=== PATIENT | male | born 1950 ===

== ENCOUNTER 2016-09-29 11:19 | Emergency (ER) | payer BC ==
--- NOTE | 2016-09-29 14:54 | UC ---
Michele Graham Billy, scribed for Maisha Siegel DO on 09/29/16 at 1308 . Respiratory Complaint HPI - HPI Summary HPI Summary: Patient is a 65 year-old male coming to [facility] for evaluation of 1.5 weeks of sinus congestion, nasal drainage, and productive cough. Patient states that his symptomsseemed to have improved today, but he has had other days wherein he has felt better. He is concerned because he plans to visit his 87yo mother on and is afraid of making her sick. Patient has been using a Neti pot for his symptoms several times a day. He denies any sore throat or earache. Denies chest pain or shortness of breath. His symptoms do not bother him at night when he is asleep. - History of Current Complaint Chief Complaint: UCRespiratory Stated Complaint: COUGHING, CONGEST Time Seen by Provider: 09/29/16 12:57 Hx Obtained From: Patient Onset/Duration: Gradual Onset, Lasting Days, Still Present Timing: Constant Severity Initially: Moderate Severity Currently: Moderate Character: Sputum Description: - unknown - he swallows it Aggravating Factors: Nothing Alleviating Factors: Nothing - neti Associated Signs And Symptoms: Positive: URI, Nasal Congestion, Sinus Discomfort. Negative: Dyspnea, Fever - Allergies/Home Medications Allergies/Adverse Reactions: Allergies Allergy/AdvReac Type Severity Reaction Status Date / Time No Known Allergies Allergy Verified 09/29/16 12:26 Home Medications: Home Medications Cholecalciferol [Vitamin D] 09/29/16 [History] Glucosamine Hydrochloride [Glucosamine] 500 mg PO 09/29/16 [History] Turmeric (Curcuma Longa) [Turmeric] 09/29/16 [History] PMH/Surg Hx/FS Hx/Imm Hx Previously Healthy: Yes Cardiovascular History Of: Denies: Cardiac Disorders - Surgical History Surgical History: Yes Surgery Procedure, Year, and Place: tonsillectomy as a child - Family History Known Family History: Negative: Cardiac Disease, Hypertension, Diabetes - Social History Lives: With Family Alcohol Use: Daily Substance Use Type: None Smoking Status (MU): Never Smoked Tobacco Review of Systems Constitutional: Negative Skin: Negative Eyes: Negative ENT: Nasal Discharge, Other - sinus congestion Respiratory: Cough Cardiovascular: Negative Gastrointestinal: Negative Genitourinary: Negative Motor: Negative Neurovascular: Negative Musculoskeletal: Negative Neurological: Negative Psychological: Negative All Other Systems Reviewed And Are Negative: Yes Physical Exam Triage Information Reviewed: Yes Appearance: Well-Appearing, No Pain Distress, Well-Nourished Vital Signs: Initial Vital Signs Temp 98.6 F 09/29/16 12:19 Pulse 86 09/29/16 12:19 Resp 18 09/29/16 12:19 BP 145/80 09/29/16 12:19 Pulse Ox 100 09/29/16 12:19 Vital Signs Reviewed: Yes Eyes: Positive: Conjunctiva Clear. Negative: Discharge ENT: Positive: Hearing grossly normal, Pharynx normal, TMs normal. Negative: Tonsillar swelling, Tonsillar exudate, Muffled/hoarse voice Neck: Positive: Supple, Nontender Respiratory: Positive: Lungs clear, Normal breath sounds, No respiratory distress, No accessory muscle use, Expiration - Prolonged expiration. Cardiovascular: Positive: RRR, No Murmur Musculoskeletal Exam: Normal Musculoskeletal: Positive: Strength Intact Neurological Exam: Normal Neurological: Positive: Alert Psychological Exam: Normal Psychological: Positive: Age Appropriate Behavior Skin Exam: Normal, Other - Skin is warm and dry. Diagnostic Evaluation - Laboratory O2 Sat by Pulse Oximetry: 100 Respiratory Course/Dx - Differential Dx/Diagnosis Differential Diagnosis/HQI/PQRI: Bronchitis, Sinusitis, Other - uri Provider Diagnoses: sinusitis Discharge - Discharge Plan Condition: Stable Disposition: HOME Prescriptions: Azithromycin TAB* [Zithromax TAB (Z-ANGIE) 250 mg #6 tabs] 0 mg PO .SEE INSTRUCTIONS #6 tab Patient Education Materials: Sinusitis (ED) Referrals: Ezekiel Card MD [Primary Care Provider] - If Needed Additional Instructions: ANTIBIOTICS ARE NOT CURRENTLY INDICATED FOR YOUR CONDITION. HOWEVER IF YOUR SYMPTOMS WORSEN OR FAIL TO IMPROVE IN 2-4, YOU CAN START THE FOLLOWING ANTIBIOTIC: AZITHROMYCIN: Azithromycin (Zithromax) is a broad spectrum antibiotic in the same class as erythromycin. It can treat a variety of bacterial infections, but is most frequently used for respiratory infections. Azithromycin is extremely long-lasting. It accumulates in body tissues and continues to kill bacteria for many days. In order to improve absorption, Azithromycin should be taken at least one hour before or two hours after a meal. It does not have the same strong tendency to upset the stomach as erythromycin and is usually very well tolerated. Patients who have had a rash or other true allergic reactions to erythromycin should not take this medication. Call if you develop gastrointestinal distress, severe diarrhea, rash, hives, itching, or shortness of breath. ANY TIME YOU TAKE AN ANTIBIOTIC, IT IS IMPORTANT TO REPLENISH THE BODY'S BALANCE OF "GOOD" BACTERIA BY EATING HIGH QUALITY CULTURED FOOD SUCH YOGURT, SAURKRAUT OR ANNA CHI AND/OR TAKING A PROBIOTIC SUPPLEMENT. The documentation as recorded by the juliaibMichele padgett Billy accurately reflects the service I personally performed and the decisions made by , Maisha Siegel DO.
== END 2016-09-29 13:59 | disposition home or self-care (01) ==
LOC: UCEAST 11:19
DX: J32.9 Chronic sinusitis, unspecified (principal)
CPT/HCPCS: 99212; G0463